=== PATIENT | female | born 1955 | race Caucasian/White ===

== ENCOUNTER → 2018-05-22 14:53 | Outpatient (CLI) | payer OTHER, SELFPAY ==
--- NOTE | 2018-05-22 | DI.US.S_ITS ---
PROCEDURE: US PELVIC COMPLETE INDICATIONS: POST MENOPAUSAL BLEEDING TECHNIQUE: Real-time scanning was performed of the pelvic organs, with image documentation. Additional endovaginal scanning was necessary due to incomplete visualization of the adnexal and endometrial structures by transabdominal scanning. COMPARISON: [facility], PELVIC COMPLETE, 09/28/2014, 10:17. Merged With [facility], , PELVIC COMPLETE, 06/07/2016, 8:30. FINDINGS: Transabdominal scanning: Limited scanning through the kidneys shows no hydronephrosis. The kidneys measure 10.9 CM right and 12.4 CM left. No pathologic free abdominal or pelvic fluid. Endovaginal scanning: Uterus: Uterus is normal in size at 3.5 x 3.7 x 5.9 cm. The endometrium measures 7 mm in combined thickness. Fibroid uterus including a left posterior intramural fibroid measuring 0.8 x 0.9 x 1.4 cm Ovaries: Ovaries are nonvisualized despite transvaginal imaging. IMPRESSION: 1. Fibroid uterus appearing stable 2. Nonvisualized ovaries Dictated by: Naresh Chatman M.D. on 05/22/2018 at 16:00 Approved by: Naresh Chatman M.D. on 05/22/2018 at 16:05
== END ==
PROVIDERS: PCP Family Medicine; Visit Provider Nurse Practitioner Family
DX: N95.0 Postmenopausal bleeding (principal)
CPT/HCPCS: 76856

== ENCOUNTER 2018-11-27 15:46 | Observation (INO) | payer OTHER, SELFPAY ==
[2018-11-27] VITALS (8 sets, daily range): BP systolic 115–141; BP diastolic 53–79; PULSE 70–96; RESP 13–29; TEMP 36.1–36.4; O2SAT 95–99; BMI 28.4
--- NOTE | 2018-11-27 16:43 | DI.RAD.S_ITS ---
PROCEDURE: XR CHEST 1V INDICATIONS: chest pain TECHNIQUE: One view of the chest was acquired. COMPARISON: None. FINDINGS: Surgical changes and devices: None. Lungs and pleura: Lungs are clear. No pleural effusions or pneumothorax. Mediastinum: Mediastinal contours appear normal. Heart size is normal. Bones and chest wall: No suspicious bony lesions. Overlying soft tissues appear unremarkable. IMPRESSION: Normal for age, source of current chest pain symptoms is not seen. Dictated by: Rodolfo Berkowitz M.D. on 11/27/2018 at 17:13 Approved by: Rodolfo Berkowitz M.D. on 11/27/2018 at 17:14
--- NOTE | 2018-11-27 16:44 | DI.CT.S_ITS ---
PROCEDURE: CT HEAD/BRAIN WO CON INDICATIONS: ataxic gait, dizzIness TECHNIQUE: Noncontrast 4.5 mm thick angled axial sections acquired from the foramen magnum to the vertex, with coronal and sagittal reformats. For radiation dose reduction, the following was used: automated exposure control, adjustment of mA and/or kV according to patient size. COMPARISON: None. FINDINGS: Image quality: Excellent. CSF spaces: Basal cisterns are patent. No extra-axial fluid collections. Ventricles are normal in size and shape. Brain: No midline shift. No intracranial masses or hemorrhage. Johnson-white matter interface is normal. Skull and face: Calvarium and visualized facial bones are intact, without suspicious lesions. Sinuses: Visualized sinuses and mastoids are clear. IMPRESSION: Normal for age, source of current symptoms is not seen. Dictated by: Rodolfo Berkowitz M.D. on 11/27/2018 at 17:14 Approved by: Rodolfo Berkowitz M.D. on 11/27/2018 at 17:14
[2018-11-27 17:36] LABS: Prothrombin Time 11.9 SECONDS (10.1-12.7)
[2018-11-27 17:38] LABS: PTT Partial Thromboplastin Tim 34 SECONDS (26.4-36.2)
[2018-11-27 17:42] LABS: Alanine Aminotransferase 42 IU/L (9-52); Albumin 4.6 g/dL (3.5-5.0); Albumin Globulin Ratio 1.4 (1.0-2.8); Alkaline Phosphatase 85 U/L (38-126); Aspartate Aminotransferase 34 IU/L (14-36); BUN Creatinine Ratio 21.3 (6-22); Bilirubin Total 0.9 mg/dL (0.2-1.3); Blood Urea Nitrogen 17 mg/dL (7-17); Calcium 9.9 mg/dL (8.4-10.2); Carbon Dioxide 31 mmol/L (22-32); Chloride 100 mmol/L (98-107); Creatine Kinase 34 U/L (30-135); Estimated Glomerular Filt Rate > 60.0 mL/min (>60); Globulin 3.4 g/dL (1.7-4.1); Glucose 98 mg/dL (80-110); HEMOLYSIS < 15 (0-50); Lipase 18 U/L (23-300); Potassium 3.7 mmol/L (3.4-5.1); Sodium 142 mmol/L (137-145)
[2018-11-27 17:49] LABS: Add Manual Diff / Slide Review NO; Basophils Absolute Auto 0 /uL (0-100); Basophils Percent Auto 0.4 % (0-2); Eosinophils Absolute Auto 100 /uL (0-450); Hematocrit 43.9 % (36-46); Hemoglobin 14.6 g/dL (12.0-16.0); Lymphocytes Absolute Auto 2400 /uL (1100-4500); Lymphocytes Percent Auto 29.9 % (25-40); Mean Corpuscular HGB Conc 33.2 % (30-36); Mean Corpuscular Volume 90.4 fL (80-100); Monocytes Absolute Auto 500 /uL (0-900); Neutrophils Absolute Auto 5000 /uL (1500-7000); Neutrophils Percent Auto 62.7 % (50-75); Platelet Count 318 X10^3/uL (150-400); Red Blood Cell Count 4.86 X10^6/uL (4.0-5.2); Red Cell Distribution Width 13.6 % (11.6-14.8)
[2018-11-27 17:55] LABS: Troponin I < 0.012 ng/mL (0.01-0.034)
[2018-11-27] MEDS: SODIUM CHLORIDE 0.9% 1,000 ML 1000 ML IV (20:15)
--- NOTE | 2018-11-27 20:20 | ED.DIZZY ---
HPI - Dizziness General Chief Complaint: Dizziness Stated Complaint: DIZZINESS,INABILITY TO WALK Time Seen by Provider: 11/27/18 18:40 Source: patient and family Mode of arrival: wheelchair Limitations: no limitations History of Present Illness HPI Narrative: 63-year-old female nonsmoker with history of hypertension and GERD presents with difficulty walking and dizziness which started mildly yesterday and is worse today. She denies that anything is spinning and states that she seems to have a hard time when walking and thinks it may be worse when standing upright. She denies any recent illness such as runny nose, sore throat or cough. She denies any nausea, vomiting or diarrhea. She denies chest pain, shortness of breath or other obvious cardiac equivalent. She denies any focal neurologic findings such as blurred vision, trouble with speech or weakness of extremities. She has had a relatively similar episode of dizziness at least once before and as a result took a meclizine which was left over. It did not help her symptoms whatsoever and she thinks it may have made her worse. She denies any recent injury or trauma. MD complaint: dizziness and lightheadedness Onset (ago): day(s) Timing: unsure Description: off-balance and difficulty walking History of similar episodes: Yes History of trauma: No Severity: moderate Relieving factors: rest Associated symptoms: ataxia Related Data Home Medications Medication Instructions Recorded Confirmed hydrochlorothiazide 12.5 mg tablet 12.5 mg PO DAILY 06/30/18 11/27/18 lisinopril 20 mg tablet 20 mg PO DAILY 06/30/18 11/27/18 omeprazole 20 mg capsule,delayed 20 mg PO DAILY 06/30/18 11/27/18 release Allergies Allergy/AdvReac Type Severity Reaction Status Date / Time No Known Drug Allergies Allergy Unverified 06/30/18 15:25 Review of Systems Constitutional Denies chills, Denies fever(s), Denies lethargy and Denies weakness Eyes Denies change in vision, Denies eye discharge, Denies irritation and Denies loss of vision ENT Ears, Nose, Mouth, and Throat: Denies change in voice, Denies neck pain and Denies sore throat Cardiovascular Denies chest pain, Denies irregular heart rhythm, Denies lightheadedness, Denies palpitations, Denies dyspnea, Denies dyspnea on exertion and Denies orthopnea Respiratory Denies cough, Denies dyspnea, Denies dyspnea on exertion and Denies wheezing Gastrointestinal Gastrointestinal: Denies abdominal pain, Denies change in bowel habits, Denies diarrhea, Denies nausea and Denies vomiting Genitourinary Denies hematuria, Denies flank pain, Denies urinary incontinence and Denies urinary urgency Musculoskeletal Reports abnormal gait and Denies neck pain Integumentary/Breasts Denies pruritus, Denies erythema, Denies rash and Denies wounds Neurologic Reports abnormal gait, Denies confusion, Reports lack of coordination, Denies loss of vision and Denies weakness Psychiatric Denies anxiety, Denies confusion, Denies depression, Denies homicidal ideation and Denies suicidal ideation Endocrine Denies palpitations Hematologic/Lymphatic Denies easy bruising Allergic/Immunologic Denies wheezing [facility] Medical History Submucous uterine fibroid (Resolved) Surgical History S/P section (Resolved) S/P knee replacement (Resolved) Social History household members: spouse Smoking Status: Never smoker Social History household members: spouse Smoking Status: Never smoker Exam Narrative Exam Narrative: GENERAL: 63-year-old female resting comfortably surrounded by multiple family members HEAD: Atraumatic. Normocephalic. No temporal or scalp tenderness. EYES: Pupils equal round and reactive. Extraocular motions intact. No scleral icterus. No injection or drainage. ENT: Nose without bleeding, purulent drainage or septal hematoma. Throat without erythema, tonsillar hypertrophy or exudate. Uvula midline. Airway patent. NECK: Trachea midline. No JVD or lymphadenopathy. Supple, nontender, no meningeal signs. CARDIOVASCULAR: Regular rate and rhythm without murmurs, gallops, or rubs. RESPIRATORY: Clear to auscultation. Breath sounds equal bilaterally. No wheezes, rales, or rhonchi. GASTROINTESTINAL: Abdomen soft, non-tender, nondistended. No hepato-splenomegaly, or palpable masses. No guarding. EXTREMITIES: No clubbing, cyanosis, or edema. No joint tenderness, effusion, or edema noted. BACK: Nontender without deformity or crepitance. No flank tenderness. NEURO: AOx3. SKIN: No rash or erythema. Initial Vital Signs Initial Vital Signs: Vital Signs Temperature 97.0 F L 11/27/18 15:51 Pulse Rate 80 11/27/18 15:51 Respiratory Rate 14 11/27/18 15:51 Blood Pressure 123/79 11/27/18 15:51 Pulse Oximetry 97 11/27/18 15:51 Course Orders Ordered: ED Orders 11/27/18 23:33 MR stroke Stat 11/27/18 23:48 Basic Metabolic Panel Stat Complete Blood Count AUTO DIFF Stat Sodium Chloride (Normal Saline 0.9%) 1,000 mls @ 125 mls/hr IV CONT LESLEY Last Admin: 11/27/18 23:46 Dose: 125 mls/hr Discontinued Medications Aspirin (Aspirin) 325 mg PO NOW ONE Stop: 11/27/18 23:34 Last Admin: 11/27/18 23:45 Dose: 325 mg Sodium Chloride (Normal Saline 0.9%) 1,000 mls @ 1,000 mls/hr IV BOLUS ONE Stop: 11/27/18 21:16 Last Infusion: 11/27/18 21:23 Dose: 1,000 mls/hr Admin: 11/27/18 20:15 Dose: 1,000 mls/hr Reevaluation(s) Reevaluation #1: Patient feels no improvement after fluids or meclizine. She has no abnormal findings on orthostatics. Patient requires help with ambulation trial and is unable to appropriate walk a straight line. The etiology of her ataxic gait is unclear and there is raising suspicion of the possibility of stroke at this point. She falls while outside of any time frame for tPA or mechanical retrieval. I discussed this case with her primary care provider and we sure the opinion that staying overnight in the hospital with MRI tomorrow is the most appropriate course Vital Signs - 8 hr 11/27/18 22:29 11/27/18 22:50 11/28/18 05:21 Temperature 97.5 F L 97.9 F Pulse Rate 74 96 H 76 Respiratory Rate 19 16 18 Blood Pressure 127/76 126/74 Blood Pressure [Right Arm] 134/56 L Pulse Oximetry 97 96 96 11/28/18 05:22 11/28/18 05:23 Temperature Pulse Rate 78 68 Respiratory Rate Blood Pressure 114/68 109/57 L Blood Pressure [Right Arm] Pulse Oximetry 96 93 MDM - Dizziness Lab Data Result diagrams: 11/27/18 23:48 11/27/18 23:48 Lab Results 11/27/18 11/27/18 11/27/18 Range/Units 17:20 17:20 17:20 WBC 8.0 (4.5-11.0) X10^3/uL RBC 4.86 (4.0-5.2) X10^6/uL Hgb 14.6 (12.0-16.0) g/dL Hct 43.9 (36-46) % MCV 90.4 (80-100) fL MCH 30.0 (26-34) PG MCHC 33.2 (30-36) % RDW 13.6 (11.6-14.8) % Plt Count 318 (150-400) X10^3/uL Neut % (Auto) 62.7 (50-75) % Lymph % (Auto) 29.9 (25-40) % [place] % (Auto) 6.0 (3-14) % Eos % (Auto) 1.0 L (2-4) % Baso % (Auto) 0.4 (0-2) % Neut # (Auto) 5000 (3917-0531) /uL Lymph # (Auto) 2400 (9910-7309) /uL [place] # (Auto) 500 (0-900) /uL Eos # (Auto) 100 (0-450) /uL Baso # (Auto) 0 (0-100) /uL PT 11.9 (10.1-12.7) SECONDS INR 1.0 (0.9-1.3) APTT 34 (26.4-36.2) SECONDS Sodium 142 (137-145) mmol/L Potassium 3.7 (3.4-5.1) mmol/L Chloride 100 (98-107) mmol/L Carbon Dioxide 31 (22-32) mmol/L BUN 17 (7-17) mg/dL Creatinine 0.80 (0.52-1.04) mg/dL Estimated GFR > 60.0 (>60) mL/min BUN/Creatinine Ratio 21.3 (6-22) Glucose 98 (80-110) mg/dL Calcium 9.9 (8.4-10.2) mg/dL Total Bilirubin 0.9 (0.2-1.3) mg/dL AST 34 (14-36) IU/L ALT 42 (9-52) IU/L Alkaline Phosphatase 85 (38-126) U/L Total Creatine Kinase 34 (30-135) U/L CK-MB (CK-2) TNP CK-MB (CK-2) Rel Index TNP Troponin I < 0.012 (0.01-0.034) ng/mL Total Protein 8.0 (6.3-8.2) g/dL Albumin 4.6 (3.5-5.0) g/dL Globulin 3.4 (1.7-4.1) g/dL Albumin/Globulin Ratio 1.4 (1.0-2.8) Lipase 18 L (23-300) U/L 11/27/18 11/27/18 Range/Units 23:48 23:48 WBC 8.7 (4.5-11.0) X10^3/uL RBC 4.47 (4.0-5.2) X10^6/uL Hgb 13.4 (12.0-16.0) g/dL Hct 40.2 (36-46) % MCV 90.0 (80-100) fL MCH 30.1 (26-34) PG MCHC 33.4 (30-36) % RDW 13.4 (11.6-14.8) % Plt Count 279 (150-400) X10^3/uL Neut % (Auto) 60.2 (50-75) % Lymph % (Auto) 31.8 (25-40) % [place] % (Auto) 6.2 (3-14) % Eos % (Auto) 1.3 L (2-4) % Baso % (Auto) 0.5 (0-2) % Neut # (Auto) 5300 (6848-7634) /uL Lymph # (Auto) 2800 (0980-6768) /uL [place] # (Auto) 500 (0-900) /uL Eos # (Auto) 100 (0-450) /uL Baso # (Auto) 0 (0-100) /uL PT (10.1-12.7) SECONDS INR (0.9-1.3) APTT (26.4-36.2) SECONDS Sodium 141 (137-145) mmol/L Potassium 3.4 (3.4-5.1) mmol/L Chloride 104 (98-107) mmol/L Carbon Dioxide 28 (22-32) mmol/L BUN 18 H (7-17) mg/dL Creatinine 0.80 (0.52-1.04) mg/dL Estimated GFR > 60.0 (>60) mL/min BUN/Creatinine Ratio 22.5 H (6-22) Glucose 118 H (80-110) mg/dL Calcium 9.4 (8.4-10.2) mg/dL Total Bilirubin (0.2-1.3) mg/dL AST (14-36) IU/L ALT (9-52) IU/L Alkaline Phosphatase (38-126) U/L Total Creatine Kinase (30-135) U/L CK-MB (CK-2) CK-MB (CK-2) Rel Index Troponin I (0.01-0.034) ng/mL Total Protein (6.3-8.2) g/dL Albumin (3.5-5.0) g/dL Globulin (1.7-4.1) g/dL Albumin/Globulin Ratio (1.0-2.8) Lipase (23-300) U/L Discharge Plan Departure Patient Disposition: Admitted as Observation Clinical Impression: Ataxia Discharge Date/Time: 11/27/18 22:50 Interventions: ED Discharge Assessment Last Done: 11/27/18 22:52 Admit Date/Time: 11/27/18 22:21 Admit Provider: Kevin Koo
--- NOTE | 2018-11-27 23:33 | DI.MRI.S_ITS ---
PROCEDURE: MR STROKE Pre- and post-contrast brain MRI, non-contrast brain MR angiogram, pre- and postcontrast neck MR angiogram INDICATIONS: ataxia, gait disturbance TECHNIQUE: Brain: Noncontrast axial T1 spin echo, axial T2 fast spin echo, sagittal and axial FLAIR, coronal T2 fast spin echo, axial gradient echo, axial diffusion and ADC through the brain. After the administration of contrast, axial 3D VIBE of the cranial vasculature and brain. Brain MRA: Non-contrast 3-D time of flight MR angiogram, with multiple uhbatyg-pntevaojy-ahbfangwkd (MIP) reformats performed. Neck MRA: Axial and sagittal TruFISP through the neck. Coronal dynamic MR angiogram during administration of contrast in the arterial and venous phases, with 3-dimenstional zoxyqkl-glcwhblrr-elfuiqyeqt (MIP) reformats constructed from subtraction images. COMPARISON: [facility], CT, CT HEAD/BRAIN WO CON, 11/27/2018, 16:47. FINDINGS: Image quality: Excellent. BRAIN: CSF spaces: Ventricles are normal in size and shape. Basal cisterns are patent. No extra-axial fluid collections. Brain: No intracranial bleeds or mass effects. Johnson-white matter interface is normal. Diffusion weighted images show no acute ischemic insults. Brainstem appears normal. Normal intravascular flow voids are present. No abnormal intracranial enhancement. Skull and face: Calvarial marrow signal is normal. Orbits appear normal. Sinuses: Sinuses and mastoids are clear. BRAIN MR ANGIOGRAM: Anterior circulation: Intracranial internal carotid arteries are normal in size and enhancement. The flow within the paired anterior cerebral arteries is normal and symmetric. The flow within the middle cerebral arteries is normal and symmetric. The anterior communicating artery is seen. No stenoses, occlusions, or aneurysms. Posterior circulation: The visualized portions of the vertebral arteries demonstrate normal caliber, and join to form a normal appearing basilar artery. The flow within the posterior cerebral arteries is normal and symmetric. No stenoses, occlusions, or aneurysms. NECK MR ANGIOGRAM: Carotids: Great vessels demonstrate a conventional anatomy as they arise from the aortic arch. The origins of the common carotid arteries appear patent. The calibers and courses of both common carotid arteries are normal. The bifurcation regions appear normal bilaterally. The internal carotid arteries demonstrate normal course and caliber. Posterior circulation: The origins of the vertebral arteries appear patent. More superior portions of both vertebral arteries demonstrate normal course and caliber, and join to form a normal appearing basilar artery. Miscellaneous: Subclavian arteries appear patent. Pre-contrast images through the neck show no soft tissue abnormalities. IMPRESSION: BRAIN MRI: 1. No acute process. No recent infarct. BRAIN MR ANGIOGRAM: Negative cervical MR angiography. NECK MR ANGIOGRAM: 1. No internal carotid artery stenosis. 2. Patent bilateral vertebral arteries. Dictated by: Abel Schneider M.D. on 11/28/2018 at 9:08 Approved by: Abel Schneider M.D. on 11/28/2018 at 9:11
[2018-11-27] MEDS: ASPIRIN 325 MG TABLET PO (23:45)
[2018-11-27] MEDS: SODIUM CHLORIDE 0.9% 1,000 ML 125 ML IV (23:46)
[2018-11-27 23:57] LABS: Add Manual Diff / Slide Review NO; Basophils Absolute Auto 0 /uL (0-100); Basophils Percent Auto 0.5 % (0-2); Eosinophils Absolute Auto 100 /uL (0-450); Eosinophils Percent Auto 1.3 % (2-4); Hematocrit 40.2 % (36-46); Hemoglobin 13.4 g/dL (12.0-16.0); Lymphocytes Absolute Auto 2800 /uL (1100-4500); Lymphocytes Percent Auto 31.8 % (25-40); Mean Corpuscular HGB Conc 33.4 % (30-36); Mean Corpuscular Hemoglobin 30.1 PG (26-34); Monocytes Absolute Auto 500 /uL (0-900); Monocytes Percent Auto 6.2 % (3-14); Neutrophils Absolute Auto 5300 /uL (1500-7000); Neutrophils Percent Auto 60.2 % (50-75); Platelet Count 279 X10^3/uL (150-400); Red Blood Cell Count 4.47 X10^6/uL (4.0-5.2); Red Cell Distribution Width 13.4 % (11.6-14.8); White Blood Cell Count 8.7 X10^3/uL (4.5-11.0)
[2018-11-28 00:04] LABS: BUN Creatinine Ratio 22.5 (6-22); Blood Urea Nitrogen 18 mg/dL (7-17); Calcium 9.4 mg/dL (8.4-10.2); Carbon Dioxide 28 mmol/L (22-32); Chloride 104 mmol/L (98-107); Estimated Glomerular Filt Rate > 60.0 mL/min (>60); Glucose 118 mg/dL (80-110); HEMOLYSIS < 15 (0-50); Potassium 3.4 mmol/L (3.4-5.1); Sodium 141 mmol/L (137-145)
--- NOTE | 2018-11-28 03:59 | PC.NURSE ---
NOC SHIFT- Patient admitted to Acute Care at 2300 this shift. Patient states that she has had vertigo times 2 days. Patient states that she has stayed in bed most of the last couple days due to dizziness and unsteady walk. Patient trying to ambulate around room by holding furniture. Patient given a walker to use with good effect. Patient made aware of her high fall risk and oriented to room, call light, bed and fall risk policy. Patient instructed to use call light for assistance with ambulation. Patient agreed to fall protocol. Patient also made aware that she will have bed alarm placed on due to high fall risk. Patient agreeable to this. Patient answered admission questions and let this RN complete assessment. Orders implemented and patient asked to sleep. Patient has been sleeping quietly for remainder of shift. No acute distress, VSS. Will continue to monitor.
[2018-11-28 05:21] VITALS: BP 126/74; PULSE 76; RESP 18; TEMP 36.6; O2SAT 96
[2018-11-28 05:22] VITALS: BP 114/68; PULSE 78; O2SAT 96
[2018-11-28 05:23] VITALS: BP 109/57; PULSE 68; O2SAT 93
[2018-11-28 07:33] VITALS: BP 116/69; PULSE 71; RESP 14; TEMP 36.5; O2SAT 95
--- NOTE | 2018-11-28 09:19 | CM.DANOTE ---
DCP: Case received, EMR reviewed and met with patient. Introduced self and role. DCP template completed with information currently available. Patient is a 63 year old female who admitted yesterday evening to the care of the hospitalist team. PCP: Dr. Koo. Payer: [facility]. Patient came to hospital via family vehicle due to increased dizziness. Patient having MRI today. Met with patient, alert and oriented. Son was in room with her. She lives here in [place] with spouse, stated that he is out of town. Patient independent, stated that she has not been driving for the past 2 days. Has son in the area. P: DCP to continue to follow. Patient should be able to go home after tests done, and when stable. Zahraa Steven RN/[employer]
[2018-11-28] MEDS: SODIUM CHLORIDE 0.9% 1,000 ML 125 ML IV (09:31)
--- NOTE | 2018-11-28 13:08 | PM.HP.1 ---
History of Present Illness Date Patient Seen: 11/28/18 Time Patient Seen: 09:49 Chief complaint: DIZZINESS,INABILITY TO WALK Narrative: Patient seen in follow-up of admission for a difficulty to walk dizziness. Patient had been in usual state of health when she saw a her doctor at [facility]. Apparently due to having some issues she was started on low-dose hormones. After approximately 1 week ago. she began woke up feeling pretty dizzy. Could not get out of bed could move her head without feeling nauseated no vomiting. Slight headache but nothing significant no visual changes. No numbness or tingling. Just was so dizzy that she could not get out of bed. She is not lightheaded she did not pass out. She had no seizure activity no other changes. At the time she had no fevers or chills. No runny nose no cough. No urinary symptoms. No change in bowel movements. Seemed to get a little better over the course of the next 24 hr she got some nausea medicine called in. Seem to help she also tried meclizine which did seem to really matter. Some of her dizziness improved over the course of the next last 24 hr but she was unable to walk across the room without listing to 1 side. Did feel weak. Did feel numb. Had no other changes. Patient otherwise has a history of hypertension, no other previous cardiac or central nervous system issues. No past surgical history. Social history lives with has very good family support here in the area. Employed as a director of homeless retirement. Habits none. Occasional alcohol no drugs no tobacco Patient History Medical History Submucous uterine fibroid (Resolved) Surgical History S/P section (Resolved) S/P knee replacement (Resolved) Social History household members: spouse Smoking Status: Never smoker Family & Social History Social History: household members spouse Prior Living Arrangements House Safety & Behavioral: Feels Safe in Current Yes Environment Been Physically Hurt or No Threatened By a Person Suicidal Ideation Description None Suicide Plan Description No Plan Tobacco & Substance use: Smoking Status Never smoker alcohol intake frequency a few times a week Substance Use Type does not use Meds Home Medications Medication Instructions Recorded Confirmed Type hydrochlorothiazide 12.5 mg tablet 12.5 mg PO DAILY 06/30/18 11/27/18 History lisinopril 20 mg tablet 20 mg PO DAILY 06/30/18 11/27/18 History omeprazole 20 mg capsule,delayed 20 mg PO DAILY 06/30/18 11/27/18 History release diazepam 2 mg PO Q4HR PRN #30 tab 11/28/18 Rx Allergies Allergy/AdvReac Type Severity Reaction Status Date / Time No Known Drug Allergies Allergy Unverified 06/30/18 15:25 Review of Systems Review of Systems All systems reviewed & are unremarkable except as noted in HPI and below Exam Vital Signs (past 8 hours): - 11/28/18 05:21 11/28/18 05:22 11/28/18 05:23 Temperature 97.9 F Pulse Rate 76 78 68 Respiratory Rate 18 Blood Pressure 126/74 114/68 109/57 L Pulse Oximetry 96 96 93 11/28/18 07:33 Temperature 97.7 F Pulse Rate 71 Respiratory Rate 14 Blood Pressure 116/69 Pulse Oximetry 95 Oxygen Delivery Method Room Air Narrative Exam Narrative: Alert female in no acute distress Skin is without rash. Pupils are equal and sponsor dural light. She has lateral gaze nystagmus bilaterally but right greater than left. EOMIs intact. Posterior pharynx is unremarkable. Neck is supple without adenopathy JVD or bruits. Lungs are clear. Heart regular rate and rhythm without murmurs clicks rubs or gallops. Abdomen is soft positive bowel sounds nontender. Extremities without cyanosis clubbing edema. Neurologic exam shows cranial nerves 2-12 are intact. Reflexes are 2+ and symmetric. Glbuwu-ty-fvlk is normal vdaq-zt-irjj is normal. Her gait appears normal. Romberg is negative. She is alert oriented and appropriate psychologically Objective Labs Result Diagrams: 11/27/18 23:48 11/27/18 23:48 Labs: Laboratory Results - last 24 hr 11/27/18 11/27/18 11/27/18 17:20 17:20 17:20 WBC 8.0 RBC 4.86 Hgb 14.6 Hct 43.9 MCV 90.4 MCH 30.0 MCHC 33.2 RDW 13.6 Plt Count 318 Neut % (Auto) 62.7 Lymph % (Auto) 29.9 [place] % (Auto) 6.0 Eos % (Auto) 1.0 L Baso % (Auto) 0.4 Neut # (Auto) 5000 Lymph # (Auto) 2400 [place] # (Auto) 500 Eos # (Auto) 100 Baso # (Auto) 0 PT 11.9 INR 1.0 APTT 34 Sodium 142 Potassium 3.7 Chloride 100 Carbon Dioxide 31 BUN 17 Creatinine 0.80 Estimated GFR > 60.0 BUN/Creatinine Ratio 21.3 Glucose 98 Calcium 9.9 Total Bilirubin 0.9 AST 34 ALT 42 Alkaline Phosphatase 85 Total Creatine Kinase 34 CK-MB (CK-2) TNP CK-MB (CK-2) Rel Index TNP Troponin I < 0.012 Total Protein 8.0 Albumin 4.6 Globulin 3.4 Albumin/Globulin Ratio 1.4 Lipase 18 L 11/27/18 11/27/18 23:48 23:48 WBC 8.7 RBC 4.47 Hgb 13.4 Hct 40.2 MCV 90.0 MCH 30.1 MCHC 33.4 RDW 13.4 Plt Count 279 Neut % (Auto) 60.2 Lymph % (Auto) 31.8 [place] % (Auto) 6.2 Eos % (Auto) 1.3 L Baso % (Auto) 0.5 Neut # (Auto) 5300 Lymph # (Auto) 2800 [place] # (Auto) 500 Eos # (Auto) 100 Baso # (Auto) 0 PT INR APTT Sodium 141 Potassium 3.4 Chloride 104 Carbon Dioxide 28 BUN 18 H Creatinine 0.80 Estimated GFR > 60.0 BUN/Creatinine Ratio 22.5 H Glucose 118 H Calcium 9.4 Total Bilirubin AST ALT Alkaline Phosphatase Total Creatine Kinase CK-MB (CK-2) CK-MB (CK-2) Rel Index Troponin I Total Protein Albumin Globulin Albumin/Globulin Ratio Lipase Assessment & Plan Plan: Assessment/Plan Narrative: Dizziness. CT scan. MRI is negative. Lab work all within normal limits. With lateral gaze nystagmus and otherwise completely normal neurologic exam today appears to be most consistent with labyrinthitis. We discussed this. She is actually doing pretty well she is going to push fluids will try p.o. Valium if needed and follow up with me later this week. Will hold estrogen therapy for now Will discharge to home. Very low risk central event. She will call me if worsening or change in symptoms. Hypertension usual medications will be continued. Disposition. She will discharge today. Follow up with me 2 days. Time Spent With Patient Time with patient: Greater than 35 minutes Quality VTE Deep Vein Thrombosis/Pulmonary Embolism Present on Admission: No
--- NOTE | 2018-11-28 13:22 | P.DS_ITS ---
History of Present Illness Date Patient Seen: 11/28/18 Time Patient Seen: 13:21 Chief complaint: DIZZINESS,INABILITY TO WALK Narrative: Patient seen in follow-up of admission for a difficulty to walk dizziness. Patient had been in usual state of health when she saw a her doctor at [facility]. Apparently due to having some issues she was started on low-dose hormones. After approximately 1 week ago. she began woke up feeling pretty dizzy. Could not get out of bed could move her head without feeling nauseated no vomiting. Slight headache but nothing significant no visual changes. No numbness or tingling. Just was so dizzy that she could not get out of bed. She is not lightheaded she did not pass out. She had no seizure activity no other changes. At the time she had no fevers or chills. No runny nose no cough. No urinary symptoms. No change in bowel movements. Seemed to get a little better over the course of the next 24 hr she got some nausea medicine called in. Seem to help she also tried meclizine which did seem to really matter. Some of her dizziness improved over the course of the next last 24 hr but she was unable to walk across the room without listing to 1 side. Did feel weak. Did feel numb. Had no other changes. Patient otherwise has a history of hypertension, no other previous cardiac or central nervous system issues. No past surgical history. Social history lives with has very good family support here in the area. 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 Habits none. Occasional alcohol no drugs no tobacco Discharge Providers Date of admission: 11/27/18 22:21 Primary care physician: Kevin Koo MD Discharge provider: Kevin Koo MD Discharge Date: 11/28/18 Summary Discharge Diagnosis: Dizziness Hypertension Hospital Course: See note dictated today Status at Discharge Cognitive/behavioral status at discharge: Normal Functional status at discharge: independent ambulation Overall status at discharge: patient is progressing back to baseline Exam Vital Signs (past 8 hours): - 11/28/18 05:21 11/28/18 05:22 11/28/18 05:23 Temperature 97.9 F Pulse Rate 76 78 68 Respiratory Rate 18 Blood Pressure 126/74 114/68 109/57 L Pulse Oximetry 96 96 93 11/28/18 07:33 Temperature 97.7 F Pulse Rate 71 Respiratory Rate 14 Blood Pressure 116/69 Pulse Oximetry 95 Oxygen Delivery Method Room Air Narrative Exam Narrative: See note dictated this a.m. Objective Labs Result Diagrams: 11/27/18 23:48 11/27/18 23:48 Labs: Laboratory Results - last 24 hr 11/27/18 11/27/18 11/27/18 17:20 17:20 17:20 WBC 8.0 RBC 4.86 Hgb 14.6 Hct 43.9 MCV 90.4 MCH 30.0 MCHC 33.2 RDW 13.6 Plt Count 318 Neut % (Auto) 62.7 Lymph % (Auto) 29.9 [place] % (Auto) 6.0 Eos % (Auto) 1.0 L Baso % (Auto) 0.4 Neut # (Auto) 5000 Lymph # (Auto) 2400 [place] # (Auto) 500 Eos # (Auto) 100 Baso # (Auto) 0 PT 11.9 INR 1.0 APTT 34 Sodium 142 Potassium 3.7 Chloride 100 Carbon Dioxide 31 BUN 17 Creatinine 0.80 Estimated GFR > 60.0 BUN/Creatinine Ratio 21.3 Glucose 98 Calcium 9.9 Total Bilirubin 0.9 AST 34 ALT 42 Alkaline Phosphatase 85 Total Creatine Kinase 34 CK-MB (CK-2) TNP CK-MB (CK-2) Rel Index TNP Troponin I < 0.012 Total Protein 8.0 Albumin 4.6 Globulin 3.4 Albumin/Globulin Ratio 1.4 Lipase 18 L 11/27/18 11/27/18 23:48 23:48 WBC 8.7 RBC 4.47 Hgb 13.4 Hct 40.2 MCV 90.0 MCH 30.1 MCHC 33.4 RDW 13.4 Plt Count 279 Neut % (Auto) 60.2 Lymph % (Auto) 31.8 [place] % (Auto) 6.2 Eos % (Auto) 1.3 L Baso % (Auto) 0.5 Neut # (Auto) 5300 Lymph # (Auto) 2800 [place] # (Auto) 500 Eos # (Auto) 100 Baso # (Auto) 0 PT INR APTT Sodium 141 Potassium 3.4 Chloride 104 Carbon Dioxide 28 BUN 18 H Creatinine 0.80 Estimated GFR > 60.0 BUN/Creatinine Ratio 22.5 H Glucose 118 H Calcium 9.4 Total Bilirubin AST ALT Alkaline Phosphatase Total Creatine Kinase CK-MB (CK-2) CK-MB (CK-2) Rel Index Troponin I Total Protein Albumin Globulin Albumin/Globulin Ratio Lipase Discharge Plan Discharge Plan Patient Disposition: Home Discharge comment: push fluids and rest Discharge Med Rec/Prescriptions Prescriptions: New diazepam 2 mg Tablet 2 mg PO Q4HR PRN (Reason: Anxiety) Qty: 30 RF: 0 Continue lisinopril 20 mg tablet 20 mg PO DAILY RF: 0 omeprazole 20 mg capsule,delayed release(DR/EC) 20 mg PO DAILY RF: 0 hydrochlorothiazide 12.5 mg tablet 12.5 mg PO DAILY RF: 0 Follow up/Referrals: Kevin Koo MD [Primary Care Provider] - 3-5 Days (call for appointment please) Provider Discharge Instructions Diet: Diet as Tolerated Activity: rest with increased activity as tolerated Visit Report/Discharge Packet Instructions: DI for Dehydration -- Adult, DI for Labyrinthitis Visit Report Forms: Stroke Signs & Symptoms Discharge Data Primary Care Provider: Kevin Koo Attending Provider: Kevin Koo Admit Date/Time: 11/27/18 22:21 Discharges patient from system. Discharge Date/Time: 11/28/18 11:28 Quality VTE Deep Vein Thrombosis/Pulmonary Embolism Present on Admission: No
== END 2018-11-28 11:28 | disposition home or self-care (01) ==
LOC: ED 22:12 → AC 22:21
PROVIDERS: Emergency Medicine; Admitting Provider Family Medicine; Emergency Provider Emergency Medicine; PCP Family Medicine; Visit Provider Family Medicine
DX: R42 Dizziness and giddiness (principal); I10 Essential (primary) hypertension; R26.2 Difficulty in walking, not elsewhere classified; K21.9 Gastro-esophageal reflux disease without esophagitis
CPT/HCPCS: 36415; 36591; 70450; 70553; 71045; 80048; 80053; 82550; 83690; 84484; 85025; 85610; 85730; 93005; 96360; 99284; 99285; G0378; A9579

== ENCOUNTER → 2020-06-06 08:18 | Outpatient (CLI) | payer OTHER, SELFPAY ==
[2018-12-12 16:44] VITALS: BMI 28.4
--- NOTE | 2020-06-06 | DI.US.S_ITS ---
PROCEDURE: US PELVIC COMPLETE INDICATIONS: PMB TECHNIQUE: Real-time scanning was performed of the pelvic organs, with image documentation. Additional endovaginal scanning was necessary due to incomplete visualization of the adnexal and endometrial structures by transabdominal scanning. COMPARISON: [facility], PELVIC COMPLETE, 09/28/2014, 10:17. [facility], PELVIC COMPLETE, 06/07/2016, 8:30. [facility], PELVIC COMPLETE, 05/22/2018, 15:28. FINDINGS: Transabdominal scanning: Limited scanning through the kidneys shows no hydronephrosis. No pathologic free abdominal or pelvic fluid. Endovaginal scanning: Uterus: Uterus is normal in size at 6 x 3.5 x 5.2 cm. There is a 1.2 cm intramural fibroid seen on the right posteriorly. The endometrium measures 15 mm in combined thickness. Ovaries: The right ovary measures 1.9 x 1.2 x 1 cm. The left ovary measures 2.4 x 1 x 1.2 cm. The ovaries have a normal sonographic appearance. No adnexal masses are seen. IMPRESSION: The endometrial stripe is thickened in this patient with a given history of postmenopausal bleeding. Differential diagnosis includes endometrial neoplasm and endometrial hyperplasia. Recommend correlation with endometrial histology, if clinically appropriate. Dictated by: William Joy M.D. on 06/06/2020 at 9:42 Approved by: William Joy M.D. on 06/06/2020 at 9:44
== END ==
PROVIDERS: PCP Family Medicine; Referring Provider Family Medicine; Visit Provider Family Medicine
DX: N95.0 Postmenopausal bleeding (principal); R93.89 Abnormal findings on diagnostic imaging of other specified body structures
CPT/HCPCS: 76830; 76856

== ENCOUNTER → 2020-06-20 08:28 | Outpatient (CLI) | payer OTHER, SELFPAY ==
[2018-12-12 16:44] VITALS: BMI 28.4
[2020-06-21 09:50] LABS: COVID19 Sendout Not Detected (Not Detect)
== END ==
PROVIDERS: PCP Family Medicine; Visit Provider Physician Assistant
DX: Z11.59 Encounter for screening for other viral diseases (principal)
CPT/HCPCS: 87635

== ENCOUNTER 2020-06-23 09:51 | Day surgery (SDC) | payer OTHER, SELFPAY ==
[2018-12-12 16:44] VITALS: BMI 28.4
[2020-06-19 07:49] VITALS: BMI 30.4
[2020-06-23] VITALS (7 sets, daily range): BP systolic 105–135; BP diastolic 59–80; PULSE 64–76; RESP 11–24; TEMP 36–36.7; O2SAT 93–99; BMI 29.9
--- NOTE | 2020-06-23 | PATH_ITS ---
[facility] Accession Number: [id number] . 01 Material submitted: . endometrium - ENDOMETRIAL CURETTINGS . 01 Clinical history: . SDC . 02 Diagnosis: Endometrial Curettings: Portions of disordered proliferative endometrium; negative for glandular hyperplasia, cytologic atypia, or malignancy. Some endometrial fragments demonstrate prominent vessels, suggestive of polyp, if clinical and imaging studies are concordant. MRV 06/26/2020 1015 Local . 02 Electronically signed: . Niki Hogan MD, Pathologist NPI- [id number] . 01 Gross description: . ENDOMETRIAL CURETTINGS: Received in formalin are multiple fragment(s) of nelson, soft tissue measuring 2.5 x 2.5 x 2.0 cm in aggregate submitted entirely in 3 cassette(s) /QBJ 06/24/2020 0751 Local . 02 Pathologist provided ICD-10: N95.0 . 02 CPT . 569422 Performed at: 01 [facility] [address], [place], [place] [id number] MD Russell Hairston MD Phone: [phone] Performed at: 02 [facility] [address] [place], [place] [id number] MD Amie Marcelino MD Phone: [phone]
[2020-06-23] MEDS: LACTATED RINGERS 1,000 ML 42 ML IV (10:20)
--- NOTE | 2020-06-23 10:54 | PM.PREOP ---
Pre-operative Note COVID-19 COVID-19 status: Negative Result date/Date tested (Pos, Neg/Pending): 06/20/20 Interval Note History & Physical reviewed/Exam performed by Physician: Yes Changes to H&P: No
--- NOTE | 2020-06-23 11:38 | SUR.OPER ---
Lithotomy on padded OR bed, head on pillow, arms secured on padded arm boards at <90 degrees abduction. Legs secured in padded yellow fins stirrups.
--- NOTE | 2020-06-23 12:07 | SUR.OPER ---
GLASSES TO PACU IN LABELED BAG WITH PATIENT.
--- NOTE | 2020-06-23 12:24 | PM.OP.1 ---
Operative Date/Time/Diagnoses Date of procedure: 06/23/20 Time of procedure: 12:24 Pre-op diagnosis: Postmenopausal bleeding Post-op diagnosis: same Procedure & Clinicians Procedure: Hysteroscopy D&C with resection of polyps Same procedure as scheduled: Yes Indications: Postmenopausal bleeding and endometrial thickening on ultrasound Surgeon: Melissa Ramirez Click Yes if Unassisted: Yes Anesthesia Type: General Operative Notes Findings: Large number of endometrial polyps Closure Type: not applicable Specimen(s): other (Endometrial polyps and curettings) Estimated Blood Loss (mL): 15 Blood products transfused: none Procedure in detail: The patient was brought to the operating room where she underwent general anesthesia. She was placed in low stirrups She was prepped and draped in usual sterile fashion with pulsatile stockings in place and functional, warming in place, no antibiotics were indicated. Her bladder was drained with in and out catheter. A single-tooth tenaculum was placed on the anterior lip of the cervix and the uterus dilated to #8 Hegar dilator. The hysteroscope was placed into the uterus with a sorbitol solution running and under constant suction. The resecting loop set at 80 W of cutting was used to resect the polyps down to the level of the endometrium. A endometrial curettage was performed. The polyps and the endometrial curettage was sent to pathology. The patient went to recovery room in good condition counts of instruments and sponges were correct. The sorbitol solution I=O approximately 6000 mL. Complications: none Post-operative Condition: stable Disposition: same day surgery Plan for aftercare: Home when awake and stable
[2020-06-23] MEDS: HYDROCODONE/ACET 5/325 TABLET 1 TAB PO (12:40)
--- NOTE | 2020-06-23 13:16 | SUR.PHASEII ---
Awake, oriented, daughter at bedside. Preparing to DC. pain 2/10, denies nausea/dizziness.
== END 2020-06-23 13:20 | disposition home or self-care (01) ==
PROVIDERS: PCP Family Medicine; Referring Provider Family Medicine; Visit Provider Specialist
PROC: 0UDB8ZZ Extraction of Endometrium, Via Natural or Artificial Opening Endoscopic (ICD-10-PCS; CPT 58558; principal; 2020-06-23 11:15)
DX: N95.0 Postmenopausal bleeding (principal); I10 Essential (primary) hypertension
CPT/HCPCS: 58558; J1100; J2250; J2405; J2704; J3010

== ENCOUNTER → 2021-09-26 17:47 | Outpatient (CLI) | payer OTHER, MEDICARE, SELFPAY ==
[2018-12-12 16:44] VITALS: BMI 28.4
--- NOTE | 2021-09-26 | DI.MG.S_ITS ---
BILATERAL DIGITAL SCREENING MAMMOGRAM 3D/2D WITH CAD: 09/26/2021 CLINICAL: Routine screening. Comparison is made to exams dated: 09/24/2017 mammogram, 11/02/2014 mammogram, and 08/25/2013 mammogram - [facility]. There are scattered fibroglandular elements in both breasts. Current study was also evaluated with a Computer Aided Detection (CAD) system. There is a benign focal asymmetry in the left breast. No significant masses, calcifications, or other findings are seen in either breast. There has been no significant interval change. IMPRESSION: BENIGN There is no mammographic evidence of malignancy. A 1 year screening mammogram is recommended. This exam was interpreted at Station ID: [id number]. NOTE: For mammograms, a report in lay terms will be sent to the patient. Approximately 15% of breast malignancies will not be visualized mammographically. In the management of a palpable breast mass, a negative mammogram must not discourage biopsy of a clinically suspicious lesion. Electronically Signed By: Macrina liang/sue:09/27/2021 09:06:19 letter sent: Normal Exam ACR BI-RADS Category 2: Benign Finding(s) 3342F
== END ==
PROVIDERS: PCP Family Medicine; Referring Provider Family Medicine; Visit Provider Family Medicine
DX: Z12.31 Encounter for screening mammogram for malignant neoplasm of breast (principal)
CPT/HCPCS: 77063; 77067

== ENCOUNTER → 2021-12-25 09:39 | Outpatient (CLI) | payer OTHER, SELFPAY ==
[2018-12-12 16:44] VITALS: BMI 28.4
--- NOTE | 2021-12-25 | DI.RAD.S_ITS ---
PROCEDURE: XR ANKLE LT MIN 3V INDICATIONS: LEFT ANKLE PAIN TECHNIQUE: 3 views of the ankle were acquired. COMPARISON: None. FINDINGS: Bones: No fractures or dislocations. Ankle mortise is normally aligned. No suspicious bony lesions. Soft tissues: No tibiotalar joint effusion. Achilles tendon appears normal. IMPRESSION: No visualized acute fracture or dislocation. However, if clinical concern and/or pain persist, short interval imaging followup in 7-10 days is recommended, as occult injury cannot be definitively excluded. Dictated by: Susana Elder M.D. on 12/25/2021 at 18:17 Approved by: Susana Elder M.D. on 12/25/2021 at 18:17
== END ==
PROVIDERS: PCP Family Medicine; Referring Provider Family Medicine; Visit Provider Family Medicine
DX: M79.672 Pain in left foot (principal)
CPT/HCPCS: 73610

== ENCOUNTER → 2021-12-31 13:12 | Outpatient (CLI) | payer OTHER, SELFPAY ==
[2018-12-12 16:44] VITALS: BMI 28.4
--- NOTE | 2021-12-31 | DI.RAD.S_ITS ---
PROCEDURE: XR FOOT RT MIN 3V INDICATIONS: Pain in left foot TECHNIQUE: 3 views of the foot were acquired. COMPARISON: None. FINDINGS: Bones: Mild 1st MTP osteoarthritis with mild hallux valgus. Small plantar calcaneal enthesophyte without adjacent soft tissue thickening. No fracture. Soft tissues: No tibiotalar joint effusion. Achilles tendon appears normal. IMPRESSION: No acute finding. Mild hallux valgus and mild first MTP osteoarthritis. Small plantar calcaneal enthesophytes; correlate for plantar fasciitis. Dictated by: Demond Anglin M.D. on 12/31/2021 at 16:32 Approved by: Demond Anglin M.D. on 12/31/2021 at 16:33
== END ==
PROVIDERS: PCP Family Medicine; Referring Provider Family Medicine; Visit Provider Family Medicine
DX: M19.072 Primary osteoarthritis, left ankle and foot (principal); M20.11 Hallux valgus (acquired), right foot; M77.32 Calcaneal spur, left foot; M79.672 Pain in left foot
CPT/HCPCS: 73630

== ENCOUNTER → 2022-01-18 08:14 | Outpatient (CLI) | payer OTHER, SELFPAY ==
[2018-12-12 16:44] VITALS: BMI 28.4
--- NOTE | 2022-01-18 | DI.MRI.S_ITS ---
PROCEDURE: MRFOOT LT WO CON INDICATIONS: LEFT FOOT AND ANKLE PAIN TECHNIQUE: Noncontrast sagittal T1 spin echo and T2 fast spin echo with fat saturation, long-axis T1 spin echo and T2 fast spin echo with fat saturation, short-axis T1 spin echo and T2 fast spin echo with fat saturation through the forefoot. COMPARISON: Located Within [facility], CR, XR FOOT LT MIN 3V, 12/31/2021, 13:19. FINDINGS: Image quality: Excellent. Bones and joints: No bone marrow contusions or metatarsal stress fractures. The sesamoid bones appear in expected positions, without internal edema. No metatarsophalangeal joint degeneration. No intraosseous lesions. Soft tissues: The visualized plantar foot muscles demonstrate normal signal and bulk. Visualized flexor and extensor tendons appear intact, without tenosynovitis. The distal insertions of the peroneus brevis and longus tendons appear intact. The principal Lisfranc ligament appears intact. No soft tissue ganglion cysts or bursal fluid collections. Sagittal images demonstrate no evidence for plantar plate tears. IMPRESSION: No significant abnormality. Dictated by: Stiven Bravo M.D. on 01/18/2022 at 10:00 Approved by: Stiven Bravo M.D. on 01/18/2022 at 11:11
--- NOTE | 2022-01-18 | DI.MRI.S_ITS ---
PROCEDURE: MR ANKLE LT WO CON INDICATIONS: LEFT FOOT AND ANKLE PAIN TECHNIQUE: Noncontrast sagittal T1 spin echo and T2 fast spin echo with fat saturation, axial proton density fast spin echo and T2 fast spin echo with fat saturation, coronal T1 spin echo and T2 fast spin echo with fat saturation through the ankle/hindfoot. COMPARISON: None. FINDINGS: Image quality: Excellent. Bones and joints: No bone marrow contusions or fractures. No osteochondral injuries of the talar dome. Small tibiotalar joint effusion. Medial structures: The posterior tibialis, flexor digitorum longus, and flexor hallucis longus tendons are intact. The posterior tibial neurovascular bundle appears normal within the tarsal tunnel, without extrinsic mass effect. The deltoid and spring ligaments are intact. Lateral structures: The anterior talofibular, calcaneofibular, and posterior talofibular ligaments appear intact. More superiorly, the anterior and posterior tibiofibular ligaments appear intact, as is the intermalleolar ligament. The tibiofibular syndesmosis is normal in width at 2 mm. The peroneus longus and brevis tendons demonstrate normal location and morphology. The sinus tarsi demonstrates demonstrates reticulated T2 hyperintense signal. Visualized sinus tarsi components (cervical ligament, interosseous talocalcaneal ligament, roots of the inferior extensor retinaculum) appear normal. The calcaneonavicular and calcaneocuboid components of the bifurcate ligament appear intact. The dorsal calcaneocuboid ligament appears intact. Anterior structures: The tibialis anterior, extensor hallucis longus, and extensor digitorum longus tendons appear intact. The dorsal talonavicular ligament appears intact. Posterior and plantar structures: Achilles tendon is intact. Intrasubstance signal is seen within the Achilles tendon, which may reflect tendinopathy. T2 hyperintense signal within the pre Achilles fat. Medial and lateral bands of the plantar fascia are of normal thickness. No abductor digiti quinti muscle atrophy to suggest Goodman neuropathy. IMPRESSION: 1. Small tibiotalar joint effusion. 2. Tendinopathy of the Achilles tendon with edema in the pre Achilles fat. 3. Edema within the sinus tarsi, which may be reactive. Dictated by: Stiven Bravo M.D. on 01/18/2022 at 11:11 Approved by: Stiven Bravo M.D. on 01/18/2022 at 11:16
== END ==
PROVIDERS: PCP Family Medicine; Referring Provider Family Medicine; Visit Provider Family Medicine
DX: M25.572 Pain in left ankle and joints of left foot (principal); M25.472 Effusion, left ankle
CPT/HCPCS: 73718; 73721

== ENCOUNTER → 2023-02-12 09:40 | Outpatient (ROUT) | payer OTHER, SELFPAY ==
[2018-12-12 16:44] VITALS: BMI 28.4
[2023-02-12 10:23] LABS: Influenza A - CEPHEID Flu A NEGATIVE (NEGATIVE); Influenza B - CEPHEID Flu B NEGATIVE (NEGATIVE); Respiratory Syncytial Virus Negative (Negative)
[2023-02-12 10:24] LABS: COVID-19 CEPHEID 4-PLEX PCR Negative (Negative)
== END ==
PROVIDERS: PCP Family Medicine; Visit Provider Internal Medicine
DX: R05.9 Cough, unspecified (principal); R09.81 Nasal congestion
CPT/HCPCS: 0241U

== ENCOUNTER 2023-12-11 10:32 | Emergency (ER) | payer OTHER, SELFPAY ==
[2018-12-12 16:44] VITALS: BMI 28.4
[2023-12-11 10:48] VITALS: BP 136/63; PULSE 69; RESP 15; TEMP 36.6; O2SAT 96; BMI 27.9
--- NOTE | 2023-12-11 10:51 | DI.RAD.S_ITS ---
PROCEDURE: XR HAND LT MIN 3V INDICATIONS: hand injury TECHNIQUE: 3 views of the hand(s) acquired. COMPARISON: None. FINDINGS: Bones: No fractures or dislocations. Carpal bones are normally aligned. No suspicious bony lesions. Soft tissues: No suspicious soft tissue calcifications. IMPRESSION: No acute bony abnormality. If pain persists, followup imaging in 5-7 days is recommended to exclude occult fracture. Dictated by: Shyann Jones M.D. on 12/11/2023 at 11:32 Approved by: Shyann Jones M.D. on 12/11/2023 at 11:32
--- NOTE | 2023-12-11 10:59 | ED_ITS ---
HPI - Fall <Leta Hernandez PA-C - Last Filed: 12/11/23 19:54> General Chief Complaint: Fall Stated Complaint: fell and hit head, swelling in L hand, sent by [facility] Time Seen by Provider: 12/11/23 10:59 Source: patient Mode of arrival: Ambulatory History of Present Illness HPI Narrative: 68-year-old female presents with concern for head injury sent by walk-in clinic. Patient states that yesterday she was trying to plug in her electric vehicle and the cable was tangled and she lost her balance, she fell hitting the left side of her head against a shelf and breaking a entire wooden shelf off of a outdoor shelving unit she believes that she had her left hand up to protect her head in a reaction when she hit this as she has hand swelling and pain as well. She states she then went down to the ground and landed on a plastic large plantar container. She endorses concern for wanting evaluation for possible brain bleed, also endorses concern for some mild neck tenderness to muscles at the sides of her neck but denies midline spinous pain. She denies loss of consciousness, nausea, vomiting, headache, vision change, dizziness numbness or tingling of her extremities or any other symptoms. She has been able to use her left hand fairly normally but did ice it last night and notes it is quite swollen on the top of the hand. She denies any other injury from the event. Related Data Home Medications Medication Instructions Recorded Confirmed hydrochlorothiazide 12.5 mg tablet 12.5 mg PO DAILY 06/30/18 06/23/20 lisinopril 20 mg tablet 20 mg PO DAILY 06/30/18 06/23/20 diazepam 2 mg tablet 2 mg PO Q4HR PRN Vertigo 06/23/20 06/23/20 atorvastatin 10 mg tablet 10 mg PO DAILY 12/11/23 12/11/23 cyclosporine 0.05 % eye drops in a drp EYE-BOTH BID 12/11/23 12/11/23 dropperette Allergies Allergy/AdvReac Type Severity Reaction Status Date / Time No Known Drug Allergies Allergy Verified 12/11/23 10:48 Review of Systems <Leta Hernandez PA-C - Last Filed: 12/11/23 19:54> Review of Systems Narrative: See HPI Patient History <Leta Hernandez PA-C - Last Filed: 12/11/23 19:54> Medical History Submucous uterine fibroid Surgical History Anesthesia S/P knee replacement (~02/2018) S/P section Family History Father Lung cancer Social History household members: spouse Smoking Status: Never smoker alcohol intake: current Smoking Status: Never smoker alcohol intake frequency: holidays/special occasions only Substance Use Type: does not use Exam <Leta Hernandez PA-C - Last Filed: 12/11/23 19:54> Narrative Exam Narrative: GENERAL: [68] year old patient appears stated age. Well-developed patient, in mild distress, well-appearing. HEAD: There are superficial abrasions approximately 5 cm x 5 cm about the patient's left posterior temporal/parietal region there is mild tenderness with minimal swelling present. Otherwise Atraumatic. Normocephalic. EYES: Pupils equal round and reactive. Extraocular motions intact. No scleral icterus. No injection or drainage. ENT: Nose without bleeding, purulent drainage. Throat without erythema, tonsillar hypertrophy or exudate. Airway patent. Uvula midline. NECK: Trachea midline. There is mild tenderness of the paraspinal muscles of the cervical spine, otherwise Non tender CARDIOVASCULAR: Regular rate and rhythm without murmurs, gallops, or rubs. RESPIRATORY: Clear to auscultation. Breath sounds equal bilaterally. No wheezes, rales, or rhonchi. EXTREMITIES: There is bruising and swelling present on the dorsum of the left hand as well as mild bruising with minimal swelling present to the 5th and 4th digits. Range of motion is intact. Patient has equal veterinary x ray operator and strong radial pulse capillary refill is less than 2 seconds. There is tenderness with palpation over the dorsum of the left hand but there is no sharp shooting pain or point tenderness. No other edema or joint tenderness. BACK: See neck. No midline spinous process tenderness deformity or step-offs. Nontender without deformity or crepitance. No flank tenderness. NEURO: AOx3. Cranial nerves II-XII are intact SKIN: No rash or erythema of visible areas Initial Vital Signs Initial Vital Signs: Vital Signs Temperature 97.9 F 12/11/23 10:48 Pulse Rate 69 12/11/23 10:48 Respiratory Rate 15 12/11/23 10:48 Blood Pressure 136/63 12/11/23 10:48 Pulse Oximetry 96 12/11/23 10:48 Oxygen Delivery Method Room Air 12/11/23 10:48 <Chace Campos MD - Last Filed: 12/12/23 08:11> Initial Vital Signs Initial Vital Signs: Vital Signs Temperature 97.9 F 12/11/23 10:48 Pulse Rate 69 12/11/23 10:48 Respiratory Rate 15 12/11/23 10:48 Blood Pressure 136/63 12/11/23 10:48 Pulse Oximetry 96 12/11/23 10:48 Oxygen Delivery Method Room Air 12/11/23 10:48 Scores <YARI Duron-Steven - Last Filed: 12/11/23 19:54> Samoan CT Head Rule Age <16 years old: No Patient on blood thinners: No Seizure after injury: No Exclusion: Patient NOT Excluded, Proceed to next steps GCS < 15 at 2 hr post trauma: No Suspected open or depressed skull fracture: No Any sign of basilar skull fracture (hemotympanum, raccoon eyes, Sharpe's sign, CSF padmaja-/rhinorrhea): No Two or more episodes of vomiting: No Age greater or equal to 65 years: Yes Retrograde amnesia to the event greater or equal to 30 min: No Dangerous Mechanism (pedestrian vs. mv, occupant ejected from mv, fall from >3 ft or > 5 stairs): No Recommendation: Consider CT. The Samoan Head CT Rule cannot rule out need for Imaging. Nexus Score for C-Spine Focal Neurologic deficit present: No Midline spinal tenderness present: No Altered level of conciousness present: No Intoxication present: No Distracting Injury Present: Yes Nexus Criteria for C-spine: 1 <Chace Campos MD - Last Filed: 12/12/23 08:11> Samoan CT Head Rule Exclusion: Patient NOT Excluded, Proceed to next steps Recommendation: Consider CT. The Samoan Head CT Rule cannot rule out need for Imaging. Nexus Score for C-Spine Nexus Criteria for C-spine: 1 Course <Leta Hernandez PA-C - Last Filed: 12/11/23 19:54> Orders Ordered: ED Orders 12/11/23 10:51 XR hand LT min 3V Stat 12/11/23 12:13 CT cervical spine wo con Stat CT head/brain wo con Stat Vital Signs Vital signs: Vital Signs - 8 hr 12/11/23 13:21 Temperature 97.9 F Pulse Rate 63 Respiratory Rate 16 Blood Pressure 116/69 Pulse Oximetry 99 Oxygen Delivery Method Room Air <Chace Campos MD - Last Filed: 12/12/23 08:11> Orders Ordered: ED Orders 12/11/23 10:51 XR hand LT min 3V Stat 12/11/23 12:13 CT cervical spine wo con Stat CT head/brain wo con Stat Vital Signs Vital signs: Vital Signs - 8 hr 12/11/23 13:21 Temperature 97.9 F Pulse Rate 63 Respiratory Rate 16 Blood Pressure 116/69 Pulse Oximetry 99 Oxygen Delivery Method Room Air MDM - Fall <Leta Hernandez PA-C - Last Filed: 12/11/23 19:54> Differential Diagnosis Differential diagnosis: Likely concussion without loss of consciousness and other (Abrasion, sprain/strain) Medical Records Attestation: I reviewed the patient's medical records. Imaging Data Extremity x-ray #1: My Impression: Agree with Radiology interpretation Radiologist's Impression: [address] [address] XRay Report Signed Patient: Rekha Lynn MR#: [id number] : 1955 Acct:[id number] Age/Sex: 68 / F Date of Service: 12/11/23 Loc: ED Accession Number: [id number] Procedure: XR hand LT min 3V Ordering Provider: Chace Campos MD PROCEDURE: XR HAND LT MIN 3V INDICATIONS: hand injury TECHNIQUE: 3 views of the hand(s) acquired. COMPARISON: None. FINDINGS: Bones: No fractures or dislocations. Carpal bones are normally aligned. No suspicious bony lesions. Soft tissues: No suspicious soft tissue calcifications. IMPRESSION: No acute bony abnormality. If pain persists, followup imaging in 5-7 days is recommended to exclude occult fracture. Dictated by: Shyann Jones M.D. on 12/11/2023 at 11:32 Approved by: Shyann Jones M.D. on 12/11/2023 at 11:32 CT scan - head: My Impression: Agree with Radiology interpretation Radiologist's Impression: [address] [address] [address] Scan Report Signed Patient: Rekha Lynn MR#: [id number] : 1955 Acct:[id number] Age/Sex: 68 / F Date of Service: 12/11/23 Loc: ED Accession Number: [id number] Procedure: CT head/brain wo con Ordering Provider: Leta Hernandez P.A-C PROCEDURE: CT HEAD/BRAIN WO CON INDICATIONS: fell/head injury no deficit TECHNIQUE: Noncontrast 4.5 mm thick angled axial sections acquired from the foramen magnum to the vertex, with coronal and sagittal reformats. For radiation dose reduction, the following was used: automated exposure control, adjustment of mA and/or kV according to patient size. COMPARISON: [facility], CT, CT HEAD/BRAIN WO CON, 11/27/2018, 16:47. FINDINGS: Image quality: Diagnostic. CSF spaces: Basal cisterns are patent. No extra-axial fluid collections. Ventricles are normal in size and shape. Brain: No midline shift. No intracranial masses or hemorrhage. Mild age- related global volume loss. Johnson-white matter interface is normal. Skull and face: Calvarium and visualized facial bones are intact, without suspicious lesions. Sinuses: Visualized sinuses and mastoids are clear. IMPRESSION: No acute intracranial pathology. Dictated by: Kirill Rosario M.D. on 12/11/2023 at 12:57 Approved by: Kirill Rosario M.D. on 12/11/2023 at 12:59 CT cervical spine: My Impression: Agree with Radiology interpretation Radiologist's Impression: [address] [address] [address] Scan Report Signed Patient: Rekha Lynn MR#: [id number] : 1955 Acct:[id number] Age/Sex: 68 / F Date of Service: 12/11/23 Loc: ED Accession Number: [id number] Procedure: CT cervical spine wo con Ordering Provider: Leta Hernandez P.A-C PROCEDURE: CT CERVICAL SPINE WO CON INDICATIONS: head injury, neck pain (no midline) TECHNIQUE: Noncontrast 3 mm thick sections acquired from the skull base to the T4 level. Sagittal and coronal reformats were then constructed. For radiation dose reduction, the following was used: automated exposure control, adjustment of mA and/or kV according to patient size. COMPARISON: None. FINDINGS: Image quality: Excellent. Bones: No fractures or dislocations. Straightening and mild reversal the normal cervical lordosis. There are multilevel degenerative changes of the cervical spine with facet and uncovertebral arthropathy, disc height loss with degenerative endplate changes and spurring. This is most pronounced at C5-C6 and C6-C7. Visualized superior ribs are intact. Soft tissues: Prevertebral soft tissues are normal in thickness. No paravertebral hematomas. No apical pneumothoraces. IMPRESSION: No displaced fracture or traumatic subluxation. Dictated by: Kirill Rosario M.D. on 12/11/2023 at 12:59 Approved by: Kirill Rosario M.D. on 12/11/2023 at 13:02 Treatment and disposition Shared decision making:: Shared decision-making was used to determine the patie nt's plan for evaluation in the emergency department today plan for outpatient follow-up MDM Narrative Medical decision making narrative: This is a well-appearing 68-year-old female who sustained a fall yesterday hitting her head hard against shelving on the way to the ground. She has evidence of mild trauma with abrasions present on her head but her cranial nerve exam is unremarkable she has no midline spinous process tenderness and good range of motion in the affected left hand. X-rays of the hand are unremarkable, her exam is consistent with a sprain/strain. CT head neck is obtained after consultation with the patient and her and noting that she does meet criteria for this based on nexus criteria and Samoan C-spine rule based on her age. These returned negative. Discussed muscle relaxers however the patient declines these which I think is reasonable she will try Advil and Tylenol for pain as well as using a heat pack for the muscle pain of her neck. Patient was provided with return precautions, counseled regarding specific things to watch out for that could possibly indicate brain bleed. Return precautions provided, follow-up plan discussed, all questions answered. Discharge Plan Departure Patient Disposition: Home Clinical Impression: Fall Qualifiers: Encounter type: initial encounter Qualified Code(s): W19.XXXA - Unspecified fall, initial encounter Head injury due to trauma Qualifiers: Encounter type: initial encounter Qualified Code(s): S09.90XA - Unspecified injury of head, initial encounter Left wrist sprain Qualifiers: Encounter type: initial encounter Qualified Code(s): S63.502A - Unspecified sprain of left wrist, initial encounter Hand sprain Qualifiers: Encounter type: initial encounter Laterality: left Qualified Code(s): S63.92XA - Sprain of unspecified part of left wrist and hand, initial encounter Activity Restrictions/Additional Instructions: *You have been diagnosed with [ ] *What to do: *Please continue to take your regular medications as directed. [ ] New medication prescriptions sent to your pharmacy: [ ] [ ] New medication written as a paper prescription [ X] No new medications given *Please follow up with your primary care provider in 2-3 days, call for an appointment. Let them know you were seen in the Emergency Department and that we ask that you be seen in follow up. We will electronically transmit a record of today's note if your PCP is in our system. You came in today with concern for a fall and head injury sent here by the walk-in clinic, based on your age we did do a CT scan and also scan of your cervical spine/neck these both look good we do not see any evidence of bleeding in the brain or spine injury in your neck. It is important to carefully monitor for symptoms if you do start having nausea vomiting headache vision change light sensitivity numbness or tingling of your extremities, gait difficulty or other symptoms it is important you get rechecked immediately as this could indicate a problem in your brain or bleed. It is possible you may have some mild concussion symptoms such as some headaches or light sensitivity although you have not had these yet so it may not happen. Your wrist/hand are sprained and we placed you in a splint for this you can use an Hosea wrap around her hand for a little bit of gentle compression and try to elevate this some, you do not have to wear the splint 247 but I would recommend he wear it in general to minimize overuse of this hand until this sprain improves. I recommend Tylenol and ibuprofen or Advil for pain inflammation you may also try heat for neck muscle tightness and see if that improves things for you. I hope you feel better soon. *If you do not have a primary care provider please contact the [facility] Resource line at [phone]. They will ask some questions about your medical history and help get you set up with a doctor in the community. *Return to Emergency Department if you should have any new, worsening or concerning symptoms, such as [fever greater than 101 F, shaking chills, worsening pain, persistent vomiting or other bothersome symptoms] Prescriptions: No Action atorvastatin 10 mg tablet 10 mg PO DAILY cyclosporine 0.05 % dropperette EYE-BOTH BID lisinopril 20 mg tablet 20 mg PO DAILY hydrochlorothiazide 12.5 mg tablet 12.5 mg PO DAILY diazepam 2 mg tablet 2 mg PO Q4HR PRN (Reason: Vertigo) Referrals: Kevin Koo MD [Primary Care Provider] - Stand Alone Forms: Patient Portal/API ED Sign-out <Chace Campos MD - Last Filed: 12/12/23 08:11> Cosign ED Attending Cosignature Attestation: was immediately available in the department for consultation. ?This documentation has been reviewed and I agree with assessment and plan. Supervised by Chace Campos MD
--- NOTE | 2023-12-11 12:13 | DI.CT.S_ITS ---
PROCEDURE: CT CERVICAL SPINE WO CON INDICATIONS: head injury, neck pain (no midline) TECHNIQUE: Noncontrast 3 mm thick sections acquired from the skull base to the T4 level. Sagittal and coronal reformats were then constructed. For radiation dose reduction, the following was used: automated exposure control, adjustment of mA and/or kV according to patient size. COMPARISON: None. FINDINGS: Image quality: Excellent. Bones: No fractures or dislocations. Straightening and mild reversal the normal cervical lordosis. There are multilevel degenerative changes of the cervical spine with facet and uncovertebral arthropathy, disc height loss with degenerative endplate changes and spurring. This is most pronounced at C5-C6 and C6-C7. Visualized superior ribs are intact. Soft tissues: Prevertebral soft tissues are normal in thickness. No paravertebral hematomas. No apical pneumothoraces. IMPRESSION: No displaced fracture or traumatic subluxation. Dictated by: Kirill Rosario M.D. on 12/11/2023 at 12:59 Approved by: Kirill Rosario M.D. on 12/11/2023 at 13:02
--- NOTE | 2023-12-11 12:13 | DI.CT.S_ITS ---
PROCEDURE: CT HEAD/BRAIN WO CON INDICATIONS: fell/head injury no deficit TECHNIQUE: Noncontrast 4.5 mm thick angled axial sections acquired from the foramen magnum to the vertex, with coronal and sagittal reformats. For radiation dose reduction, the following was used: automated exposure control, adjustment of mA and/or kV according to patient size. COMPARISON: [facility], CT, CT HEAD/BRAIN WO CON, 11/27/2018, 16:47. FINDINGS: Image quality: Diagnostic. CSF spaces: Basal cisterns are patent. No extra-axial fluid collections. Ventricles are normal in size and shape. Brain: No midline shift. No intracranial masses or hemorrhage. Mild age-related global volume loss. Johnson-white matter interface is normal. Skull and face: Calvarium and visualized facial bones are intact, without suspicious lesions. Sinuses: Visualized sinuses and mastoids are clear. IMPRESSION: No acute intracranial pathology. Dictated by: Kirill Rosario M.D. on 12/11/2023 at 12:57 Approved by: Kirill Rosario M.D. on 12/11/2023 at 12:59
[2023-12-11 13:21] VITALS: BP 116/69; PULSE 63; RESP 16; TEMP 36.6; O2SAT 99
== END 2023-12-11 13:50 | disposition home or self-care (01) ==
PROVIDERS: Emergency Provider Student in an Organized Health Care Education/Training Program; PCP Family Medicine
DX: S09.90XA Unspecified injury of head, initial encounter (principal); S63.92XA Sprain of unspecified part of left wrist and hand, initial encounter; M54.2 Cervicalgia; W01.198A Fall on same level from slipping, tripping and stumbling with subsequent striking against other object, initial encounter
CPT/HCPCS: 70450; 72125; 73130; 99284

== ENCOUNTER → 2024-01-15 15:42 | Outpatient (CLI) | payer OTHER, SELFPAY ==
[2018-12-12 16:44] VITALS: BMI 28.4
--- NOTE | 2024-01-15 | DI.MG.S_ITS ---
BILATERAL DIGITAL SCREENING MAMMOGRAM 3D/2D WITH CAD: 01/15/2024 CLINICAL: Routine screening. Comparison is made to exams dated: 09/26/2021 mammogram, 09/24/2017 mammogram, and 11/02/2014 mammogram - [facility]. There are scattered areas of fibroglandular density in both breasts (category b / 25%-50% glandular tissue). Current study was also evaluated with a Computer Aided Detection (CAD) system. There is a benign focal asymmetry in the left breast. No significant masses, calcifications, or other findings are seen in either breast. There has been no significant interval change. IMPRESSION: BENIGN There is no mammographic evidence of malignancy. A 1 year screening mammogram is recommended. Based on the Tyrer Cuzick model (a risk assessment model) the patient's lifetime risk is 9.8% and her 10 year risk is 6.3%. According to the ACR, ACS, and NCCN guidelines, an annual breast MRI exam along with mammogram is recommended if the patient's lifetime risk is 20% or greater. This exam was interpreted at Station ID: [id number]. NOTE: For mammograms, a report in lay terms will be sent to the patient. Approximately 15% of breast malignancies will not be visualized mammographically. In the management of a palpable breast mass, a negative mammogram must not discourage biopsy of a clinically suspicious lesion. Electronically Signed By: Shyann odom/sue:01/16/2024 16:14:21 letter sent: Normal Exam ACR BI-RADS Category 2: Benign Finding(s) 3342F
== END ==
PROVIDERS: PCP Family Medicine; Referring Provider Family Medicine; Visit Provider Family Medicine
DX: Z12.31 Encounter for screening mammogram for malignant neoplasm of breast (principal); R92.323 Mammographic fibroglandular density, bilateral breasts
CPT/HCPCS: 77063; 77067

== ENCOUNTER → 2024-04-02 09:48 | Outpatient (CLI) | payer OTHER, SELFPAY ==
[2018-12-12 16:44] VITALS: BMI 28.4
--- NOTE | 2024-04-02 09:49 | DI.RAD.S_ITS ---
PROCEDURE: XR DEXA AXIAL SKELETON INDICATIONS: OSTEOPOROSIS SCREENING COMPARISON: None. FINDINGS: Lumbar Spine: Bone mineral density 1.078 g/cm2, T score 0.3, baseline. Left Hip: Bone mineral density 1.015 g/cm2, T score 0.6, baseline. Left Femoral Neck: Bone mineral density 0.852 g/cm2, T score 0, baseline. Right Hip: Bone mineral density 1.016 g/cm2, T score 0.6, baseline. Right Femoral Neck: Bone mineral density 0.873 g/cm2, T score 0.2, baseline. Fracture Risk Calculation (when applicable): Not applicable due to normal bone mineral density. IMPRESSION: Normal bone mineral density. Follow-up guidelines as follows: Osteoporosis: Consider a repeat DEXA and Vertebral Fracture Assessment (VFA) exam in 2 years or sooner if medically necessary, to reassess this patient's status. Osteopenia: Consider a repeat DEXA in 2-3 years to reassess this patient's status, or if there is a new clinical indication. Normal: Consider a repeat DEXA in 5 years or sooner, or if there is a new clinical indication. All treatment decisions require clinical judgment and consideration of individual patient factors, including patient preferences, comorbidities, previous drug use, risk factors not captured in the FRAX model (e.g., frailty, falls, vitamin D deficiency, increased bone turnover, interval significant decline in bone density ) and possible under- or over-estimation of fracture risk by FRAX. In addition, the NOF Guide recommends that FDA-approved medical therapies be considered in postmenopausal women and men age >= 50 years with a: * Hip or vertebral (clinical or morphometric) fracture * T-score of <=-2.5 at the spine or hip * Ten-year fracture probability by FRAX of >= 3% for hip fracture or >=20% for major osteoporotic fracture. People with diagnosed cases of osteoporosis or at high risk for fracture should have regular bone mineral density tests. For patients eligible for Medicare, routine testing is allowed once every 2 years. The testing frequency can be increased to one year for patients who have rapidly progressing disease, those who are receiving or discontinuing medical therapy to restore bone mass, or have additional risk factors. Dictated by: Diego Kee M.D. on 04/02/2024 at 10:49 Approved by: Diego Kee M.D. on 04/02/2024 at 10:52
== END ==
LOC: RAD 09:49
PROVIDERS: PCP Family Medicine; Referring Provider Registered Nurse; Visit Provider Registered Nurse
DX: Z13.820 Encounter for screening for osteoporosis (principal); Z78.0 Asymptomatic menopausal state
CPT/HCPCS: 77080